=== PATIENT | female | born 2000 | race African-American/Black ===

== ENCOUNTER 2024-03-28 15:53 | Emergency (ER) | payer OTHER ==
[2024-03-28] MEDS ORDERED: LEVETIRACETAM 500 MG/5 ML VIAL IV ONE (16:50)
[2024-03-28] MEDS ORDERED: NA CHLORIDE 0.9% 500 ML ONE (16:50)
--- NOTE | 2024-03-28 16:56 | RAD REPORT ---
EXAM: CT brain without contrast HISTORY: SEIZURE COMPARISON: None TECHNIQUE: Multiple contiguous axial images were obtained and a CT of the brain without contrast. Sag ittal and coronal reformats were performed. One or more of the following dose reduction techniques were used: Automated exposure control, adjust ment of the mA and/or kV according to patient size, and/or iterative reconstruction. FINDINGS: No evidence of hydrocephalus, intracranial hemorrhage, or extra-axial fluid collection. The brain is normal in morphology. No evidence of midline shift or areas of brain edema. The calvarium is intact. The visualized paranasal sinuses and mastoid air cells are essentially clear . IMPRESSION: No evidence of acute intracranial abnormality.
[2024-03-28 17:01] LABS: Absolute Eosinophils 0.2 K/uL (0-0.5); Absolute Monocytes 0.6 K/uL (0.1-1.3); Absolute Neutrophil 0.9 K/uL (1.8-8.0); Basophils % 0.2 % (0-1.3); Eosinophils % 4.5 % (0-4.4); Hematocrit 33.1 % (36.0-45.0); Hemoglobin 10.7 g/dL (12.0-15.0); Lymphocytes % 56.1 % (15.3-44.8); MCH 23.8 pg (27.0-35.0); MCHC 32.2 g/dL (32.0-36.0); MCV 73.9 fL (80-100); MPV 9.9 fL (7.6-11.3); Monocytes % 15.4 % (3.3-12.3); Neutrophils % 23.8 % (41.7-73.7); Nucleated Red Blood Cells % 0.2 % (0-0); Platelets 197 thou/uL (152-406); RBC Red Blood Cell Count 4.48 M/uL (3.86-4.86); Red Cell Distribution Width 18.8 % (12.1-15.2)
[2024-03-28 17:05] LABS: PT Prothrombin Time 11.6 SECONDS (9.4-12.5); Protime INR 1.04
[2024-03-28 17:06] LABS: PTT, Activated Partial Thromb 34.7 SECONDS (24.3-36.9)
[2024-03-28 17:16] LABS: ALT/SGPT 16 U/L (13-56); AST/SGOT 17 U/L (15-37); Albumin 3.4 g/dL (3.4-5.0); Albumin/Globulin Ratio 0.8 (1.1-1.8); Alkaline Phosphatase 75 U/L (45-117); Anion Gap 6.7 mEq/L (5.0-15.0); BUN Blood Urea Nitrogen 8 mg/dL (7-18); Bicarbonate 27 mEq/L (21-32); Bilirubin Total 0.2 mg/dL (0.2-1.0); Globulin 4.3 g/dL (2.3-3.5); Glomerular Filtration Rate 105 ml/min (=/>90); Glucose Level 82 mg/dL (74-106); Potassium 3.7 mEq/L (3.5-5.1); Protein, Total 7.7 g/dL (6.4-8.2); Sodium Level 138 mEq/L (136-145)
[2024-03-28 17:17] LABS: Bilirubin Direct < 0.2 mg/dL (0-0.2)
[2024-03-28 18:12] LABS: Sqamous Epithelial <5 /HPF (None Seen); Urine Bacteria <20 /HPF (<20); Urine Bilirubin NEGATIVE (Negative); Urine Blood 3+ (Negative); Urine Clarity Clear (Clear); Urine Color Colorless (Yellow); Urine Culture Reflex Order NOT NEEDED; Urine Glucose NEGATIVE (Negative); Urine Ketones NEGATIVE (Negative); Urine Microscopic Reflex YN ORDER UMIC; Urine Mucus Slight /HPF (None Seen); Urine Nitrite NEGATIVE (Negative); Urine Protein NEGATIVE (Negative); Urine RBC 21-50 /HPF (None Seen); Urine Urobilinogen Normal (Normal); Urine WBC <5 /HPF (<5)
[2024-03-28 18:20] LABS: Barbiturates NEGATIVE (NEGATIVE); Benzodiazepines NEGATIVE (NEGATIVE); Cocaine POSITIVE (NEGATIVE); METHAMPHETAM NEGATIVE (NEGATIVE); Methadone NEGATIVE (NEGATIVE); Opiates NEGATIVE (NEGATIVE); Phencyclidine NEGATIVE (NEGATIVE); THC Cannibis POSITIVE (NEGATIVE)
--- NOTE | 2024-03-28 19:06 | ER ---
Nurse's Notes [facility] Name: Sabine Lamb Age: 23 yrs Sex: Female : 2000 Arrival Date: 03/28/2024 Time: 15:53 Bed 7 Private MD: Diagnosis: Other seizures;Cocaine use, unspecified, uncomplicated Presentation: 03/28 16:05 Chief complaint: EMS states: [facility] rehab toned out EMS for possible seizure. rs5 Event was witnessed by staff who reports "shaking uncontrollably for 15 seconds". Pt had admitted herself voluntarily to rehab center for cocaine abuse. 16:05 Coronavirus screen: At this time, the client does not indicate any symptoms associated rs5 with coronavirus-19. Ebola Screen: No symptoms or risks identified at this time. Initial Sepsis Screen: Does the patient meet any 2 criteria? No. Patient's initial sepsis screen is negative. Does the patient have a suspected source of infection? No. Patient's initial sepsis screen is negative. Risk Assessment: Do you want to hurt yourself or someone else? Patient reports no desire to harm self or others. Onset of symptoms was March 28, 2024. 16:05 Method Of Arrival: EMS: [facility] rs5 16:05 Acuity: BIBI 3 rs5 Triage Assessment: 16:22 General: Appears in no apparent distress. uncomfortable, Behavior is calm, cooperative. rs5 Pain: Denies pain. 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 - Infectious Disease History:: Denies. - Social history:: Smoking status: Patient denies any tobacco usage or history of. Screenin:06 [facility] ED Fall Risk Assessment (Adult) History of falling in the last 3 months, rs5 including since admission No falls in past 3 months (0 pts) Confusion or Disorientation No (0 pts) Intoxicated or Sedated No (0 pts) Impaired Gait No (0 pts) Mobility Assist Device Used No (0 pt) Altered Elimination No (0 pt) Score/Fall Risk Level 0 - 2 = Low Risk Oriented to surroundings, Maintained a safe environment. Abuse screen: Denies threats or abuse. Nutritional screening: No deficits noted. Tuberculosis screening: No symptoms or risk factors identified. Assessment: 16:05 General: Appears in no apparent distress. uncomfortable, Behavior is calm, cooperative. rs5 Pain: Denies pain. Neuro: Level of Consciousness is awake, alert, obeys commands, Oriented to person, place, time, situation. Cardiovascular: Patient's skin is warm and dry. Respiratory: Airway is patent Respiratory effort is even, unlabored, Respiratory pattern is regular, symmetrical. GI: Abdomen is round non-distended, Abd is soft and non tender X 4 quads. : No signs and/or symptoms were reported regarding the genitourinary system. EENT: No signs and/or symptoms were reported regarding the EENT system. Derm: Skin is intact, Skin is pink, warm \\T\\ dry. Musculoskeletal: Range of motion: intact in all extremities. 17:10 Reassessment: Patient and/or family updated on plan of care and expected duration. Pain rs5 level reassessed. Patient is alert, oriented x 3, equal unlabored respirations, skin warm/dry/pink. 18:33 Reassessment: Patient and/or family updated on plan of care and expected duration. Pain rs5 level reassessed. Patient is alert, oriented x 3, equal unlabored respirations, skin warm/dry/pink. 19:10 Reassessment: discharge pending ride home. patient attempted to call for ride al5 home, refused. patient making other arrangements at this time. 19:10 General: Appears in no apparent distress. comfortable, Behavior is calm, cooperative. al5 Pain: Denies pain. Neuro: Level of Consciousness is awake, alert, obeys commands, Oriented to person, place, time, situation. Cardiovascular: Capillary refill < 3 seconds Patient's skin is warm and dry. Respiratory: Airway is patent Respiratory effort is even, unlabored, Respiratory pattern is regular, symmetrical. Derm: Skin is intact, is healthy with good turgor, Skin is pink, warm \\T\\ dry. normal. Vital Signs: 16:05 BP 106 / 52; Pulse 71; Resp 17; Temp 98(O); Pulse Ox 99% on R/A; rs5 18:34 BP 110 / 55; Pulse 74; Resp 17; Pulse Ox 99% on R/A; rs5 19:00 BP 108 / 73; Pulse 53; Resp 14; Pulse Ox 99% on R/A; al5 ED Course: 16:04 Patient arrived in ED. ec2 16:06 Patient has correct armband on for positive identification. Placed in gown. Bed in low rs5 position. Call light in reach. Side rails up X2. 16:06 No provider procedures requiring assistance completed. rs5 16:15 Jovi Mccollum PA is PHCP. cp 16:15 Santiago Murray MD is Attending Physician. cp 16:15 Inserted saline lock: 22 gauge in right antecubital area, using aseptic technique. rs5 Blood collected. Flushed with 10 mL NS. 16:17 Fransico Aguiar, DERRICK is Primary Nurse. rs5 16:22 Triage completed. rs5 16:51 CT Head Brain wo Cont In Process Unspecified. EDMS 17:58 Warm blanket given. Pillow given. Verbal reassurance given. am7 19:49 Provided Education on: discharge follow up. al5 19:51 IV discontinued, intact, bleeding controlled, No redness/swelling at site. Pressure al5 dressing applied. Administered Medications: 17:01 Drug: NS 0.9% IV 500 ml 500 ml IV at 1 bolus once; to be given as a bolus over 60 rs5 minutes Volume: 500 ml; Route: IV; Rate: 1 bolus; Site: right antecubital; 19:34 Follow up: Response: No adverse reaction; IV Status: Completed infusion al5 17:01 Drug: Keppra IV 500 mg IV at calculated rate once Route: IV; Rate: calculated rate; rs5 Site: right antecubital; 19:35 Follow up: Response: No adverse reaction; IV Status: Completed infusion; IV Intake: al5 100ml Medication: 17:13 VIS not applicable for this client. rs5 Intake: 19:35 IV: 100ml; Total: 100ml. al5 Outcome: 19:06 Discharge ordered by . cp 19:51 Discharged to Rehab Facility al5 19:51 Condition: stable 19:51 Instructed on discharge instructions, follow up and referral plans. medication usage, Demonstrated understanding of instructions, follow-up care, medications, Prescriptions given X 1, 19:52 Patient left the ED. al5 Signatures: Dispatcher [employer] EDSD Jovi Mccollum, PA PA cp Aguiar, Fransico, RN RN rs5 Santiago Murray MD MD ec2 Paula Crawford RN RN al5 Vivi Gomez am7 Corrections: (The following items were deleted from the chart) 19:38 General: Appears in no apparent distress. comfortable, Behavior is calm, al5 cooperative, al5 :51 19:38 Pain: Denies pain. al5 al5 51 19:38 Neuro: Level of Consciousness is awake, alert, obeys commands, Oriented to al5 person, place, time, situation, al5 19:38 Cardiovascular: Capillary refill < 3 seconds Patient's skin is warm and dry. al5 al5 :51 19:38 Respiratory: Airway is patent Respiratory effort is even, unlabored, Respiratory al5 pattern is regular, symmetrical, al5 : 19:38 Derm: Skin is intact, is healthy with good turgor, Skin is pink, warm \\T\\ dry. al5 normal, al5
--- NOTE | 2024-03-28 19:06 | EDPHYS ---
Physician Documentation [facility] Name: Sabine Lamb Age: 23 yrs Sex: Female : 2000 Arrival Date: 03/28/2024 Time: 15:53 Bed 7 Private MD: ED Physician Santiago Murray HPI: 03/28 16:15 This 23 yrs old Black Female presents to ER via EMS with complaints of Probable Seizure.cp 16:15 The patient presents after having a single isolated seizure, that lasted 15 second(s). cp Character of seizure(s): Motor activity: generalized, shaking all over. 16:15 Seizure onset: just prior to arrival. cp 16:15 Seizure Hx: Seizure medications: Keppra, known seizure disorder. Associated injury: The cp patient did not suffer any apparent associated injury. EMS care: none. Current symptoms: decreased level of consciousness, is arousable but tired. 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 - Infectious Disease History:: Denies. - Social history:: Smoking status: Patient denies any tobacco usage or history of. ROS: 16:25 Constitutional: Negative for body aches, chills, fever, poor PO intake, cp 16:25 Cardiovascular: Negative for chest pain, cp 16:25 Respiratory: Negative for cough, shortness of breath, wheezing, 16:25 Abdomen/GI: Negative for abdominal pain, vomiting, diarrhea, constipation, 16:25 Neuro: Positive for altered mental status, history of seizure, Negative for actively seizing, 16:25 Eyes: Negative for injury, pain, redness, and discharge, cp 16:25 ENT: Negative for drainage from ear(s), ear pain, sore throat, difficulty swallowing, difficulty handling secretions, 16:25 All other systems are negative, cp Exam: 16:30 Constitutional: The patient appears in no acute distress, non-diaphoretic, non-toxic, cp well developed, well nourished, 16:30 Head/Face: Normocephalic, atraumatic. cp 16:30 Eyes: Periorbital structures: appear normal, Pupils: equal, round, and reactive to light and accomodation, Conjunctiva: normal, no exudate, no injection, Sclera: no appreciated abnormality, Lids and lashes: appear normal, bilaterally, 16:30 ENT: External ear(s): are unremarkable, Nose: is normal, Mouth: Lips: dry, Oral mucosa: moist, Posterior pharynx: Airway: no evidence of obstruction, patent, 16:30 Neck: ROM/movement: limited range of motion, is not appreciated, Meningeal signs: are not present, 16:30 Chest/axilla: Inspection: normal, 16:30 Cardiovascular: Rate: normal, Rhythm: regular, Edema: is not appreciated, JVD: is not appreciated, 16:30 Respiratory: the patient does not display signs of respiratory distress, Respirations: normal, no use of accessory muscles, no retractions, labored breathing, is not present, Breath sounds: are clear throughout, no decreased breath sounds, no stridor, no wheezing, 16:30 Abdomen/GI: Inspection: abdomen appears normal, Palpation: abdomen is soft and non-tender, in all quadrants, 16:30 Back: pain, is absent, no tenderness to palpation, 16:30 Neuro: Orientation: to person, situation, Mentation: able to follow commands, slow to respond, Motor: moves all fours, no focal deficits, 17:55 ECG was reviewed by the Attending Physician. Vital Signs: 16:05 BP 106 / 52; Pulse 71; Resp 17; Temp 98(O); Pulse Ox 99% on R/A; rs5 18:34 BP 110 / 55; Pulse 74; Resp 17; Pulse Ox 99% on R/A; rs5 19:00 BP 108 / 73; Pulse 53; Resp 14; Pulse Ox 99% on R/A; al5 MDM: 16:15 Medical Screening Exam initiated cp 17:00 Differential diagnosis: cerebral vascular accident, drug overdose, cardiac arrhythmia, cp seizure. 19:05 Data reviewed: vital signs, nurses notes, lab test result(s), EKG, radiologic studies, cp CT scan. 19:05 Consideration of Admission/Observation Escalation of care including cp admission/observation considered. I considered the following discharge prescriptions or medication management in the emergency department Medications were administered in the Emergency Department. See MAR. Independent interpretation of the following test(s) in the Emergency Department EKG: See my EKG interpretation above. Care significantly affected by the following chronic conditions: seizure disorder. Care significantly affected by the following Social Determinants of Health: Misuse of alcohol and/or drugs. Counseling: I had a detailed discussion with the patient and/or guardian regarding the historical points, exam findings, and any diagnostic results supporting the discharge/admit diagnosis, lab results, radiology results, to return to the emergency department if symptoms worsen or persist or if there are any questions or concerns that arise at home. Response to treatment: the patient's symptoms have markedly improved after treatment. ED course: VSS. Patient ambulating w/o assistance, alert times 3. Will discharge to home for continued monitoring. No seizure activity observed in ED while monitoring patient. 03/28 16:26 Order name: Acetaminophen; Complete Time: 18:37 03/28 18:37 Interpretation: Reviewed. 03/28 16:26 Order name: Basic Metabolic Panel; Complete Time: 18:37 03/28 18:37 Interpretation: Normal except: CL 108. 03/28 16:26 Order name: CBC with Diff; Complete Time: 17:11 03/28 17:11 Interpretation: Normal except: WBC 3.60; HGB 10.7; HCT 33.1; MCV 73.9; MCH 23.8; RDW cp 18.8; ISABELL% 23.8; LYM% 56.1; MN% 15.4; EOSINOPHIL % 4.5; NEUT A 0.9. 03/28 16:26 Order name: ETOH Level; Complete Time: 18:37 03/28 18:38 Interpretation: Reviewed. 03/28 16:26 Order name: Hepatic Function; Complete Time: 18:37 03/28 18:38 Interpretation: Normal except: IBILI, CALC 0.0; GLOB 4.3; A/G 0.8. 03/28 16:26 Order name: PT-INR; Complete Time: 17:11 03/28 18:40 Interpretation: Reviewed. 03/28 16:26 Order name: Test, Urine; Complete Time: 18:37 03/28 18:38 Interpretation: Reviewed. 03/28 16:26 Order name: Ptt, Activated; Complete Time: 17:11 03/28 18:40 Interpretation: Reviewed. 03/28 16:26 Order name: Salicylate; Complete Time: 18:37 cp 03/28 18:39 Interpretation: Reviewed. cp 03/28 16:26 Order name: Urinalysis w/ reflexes; Complete Time: 18:37 cp 03/28 18:37 Interpretation: Normal except: UBLD 3+; URBC 21-50. cp 03/28 16:26 Order name: Urine Drug Screen; Complete Time: 18:37 cp 03/28 18:38 Interpretation: Normal except: SRAVANI POSITIVE; THC POSITIVE. cp 03/28 16:26 Order name: CT Head Brain wo Cont; Complete Time: 17:11 cp 03/28 16:26 Order name: EKG - Nurse/Tech; Complete Time: 17:45 cp 03/28 16:26 Order name: IV Saline Lock; Complete Time: 17:45 cp 03/28 16:26 Order name: Labs collected and sent; Complete Time: 17:45 cp 03/28 16:26 Order name: Seizure Precautions; Complete Time: 17:45 cp EC:55 Rate is 48 beats/min. Rhythm is regular. WV interval is normal. QRS interval is normal. cp QT interval is normal. T waves are Inverted in lead aVR. Interpreted by me. Reviewed by me. Administered Medications: 17:01 Drug: NS 0.9% IV 500 ml 500 ml IV at 1 bolus once; to be given as a bolus over 60 rs5 minutes Volume: 500 ml; Route: IV; Rate: 1 bolus; Site: right antecubital; 19:34 Follow up: Response: No adverse reaction; IV Status: Completed infusion al5 17:01 Drug: Keppra IV 500 mg IV at calculated rate once Route: IV; Rate: calculated rate; rs5 Site: right antecubital; 19:35 Follow up: Response: No adverse reaction; IV Status: Completed infusion; IV Intake: al5 100ml Disposition Summary: 03/28/24 19:06 Discharge Ordered Notes: Location: Home cp Problem: new cp Symptoms: have improved cp Condition: Stable cp Diagnosis - Other seizures cp - Cocaine use, unspecified, uncomplicated cp Followup: cp - With: Private Physician - When: 2 - 3 days - Reason: Recheck today's complaints Discharge Instructions: - Discharge Summary Sheet cp - Cocaine Use Disorder cp - Seizure, Adult cp Forms: - Medication Reconciliation Form cp - Antibiotic Education cp - Prescription Opioid Use cp - Patient Portal Instructions cp - Leadership Thank You Letter cp Prescriptions: - Keppra 500 mg Oral tablet - take 1 tablet ORAL route every 12 hours; 60 tablet; Refills: 0, Product cp Selection Permitted Signatures: Dispatcher [employer] EDMS Jovi Mccollum PA PA cp Fransico Aguiar, RN RN rs5 Paula Carwford RN al5 Corrections: (The following items were deleted from the chart) 16:27 16:27 ACETAMINOPHEN+C.LAB.BRZ ordered. EDMS EDMS 16:27 16:27 BASIC METABOLIC PANEL+C.LAB.BRZ ordered. EDMS EDMS 16:27 16:27 CBC+H.LAB.BRZ ordered. EDMS EDMS 16:27 16:27 ETHANOL+C.LAB.BRZ ordered. EDMS EDMS 16:27 16:27 HEPATIC FUNCTION+C.LAB.BRZ ordered. EDMS EDMS 16:27 16:27 PROTIME (+INR)+COAG.LAB.BRZ ordered. EDMS EDMS 16:27 16:27 Test, Urine+UC.LAB.BRZ ordered. EDMS EDMS 16:27 16:27 PTT, ACTIVATED+COAG.LAB.BRZ ordered. EDMS EDMS 16:27 16:27 SALICYLATE+C.LAB.BRZ ordered. EDMS EDMS 16:27 16:27 Urinalysis+U.LAB.BRZ ordered. EDMS EDMS 16:27 16:27 URINE DRUG SCREEN+UC.LAB.BRZ ordered. EDMS EDMS 16:27 16:27 Head Brain Wo Cont+CT.RAD.BRZ ordered. EDMS EDMS
[2024-03-28 20:01] VITALS: TEMP 98; O2SAT 99
[2024-03-28 20:12] VITALS: BP 108/73
--- NOTE | 2024-03-29 15:44 | EKG ---
Test Date: 2024-03-28 Test Time: 17:47:11 Controls Design Engineer: AM MEASUREMENT RESULTS: Intervals: Rate: 48 SC: 132 QRSD: 86 QT: 494 QTc: 441 [place]: P: 56 SC: 132 QRS: 78 T: 69 INTERPRETIVE STATEMENTS: Sinus bradycardia Cannot rule out Anterior infarct, age undetermined Abnormal ECG No previous ECG available for comparison Electronically Signed On 03-29-24 15:43:52 HOME APPLIANCE INSTALLER by Javier Browning
== END 2024-03-28 19:52 | disposition home or self-care (01) ==
LOC: ER 15:53
DX: G40.89 Other seizures (principal); F14.90 Cocaine use, unspecified, uncomplicated
CPT/HCPCS: 96365; 93005; 85025; 81001; 80048; 36415; 81025; 85610; 80076; 85730; 80307; 70450; 99284; 96366; 80143; 80179; 82077; J1953; J7040